=== PATIENT | female | born 1990 | race Caucasian/White ===

== ENCOUNTER 2017-05-21 16:09 | Emergency (ER) | payer MEDICAID ==
[~2017-05-21] VITALS: Ht 160 cm; Wt 58.1 kg
[~2017-05-21 16:09] MED LIST: IRON TABLETS325 MG PO; NOMEDS *; PRENATAL PLUS1 TA1 PO; PRENATAL VITAMI1 TA3 PO; VIBRAMYCIN 100100 MG PO; VOLTAREN75 MG PO
--- OUTSIDE RECORDS SUMMARY | 2017-05-21 16:26 | External Medical Summary Rpt ---
Author Author [facility] Organization [facility] Address Unknown Phone Unavailable Care Team Providers Care Gopherman Name Role Phone FANYY, UNKNOWN PCP Unavailable Encounter TIRSO HUNT [id number] Date(s): 03/30/16 - 03/30/16 [facility] [address] [place] [address]- Discharge Disposition: Left Without Being Seen Attending Physician: STEVIE FONTENOT MD Admitting Physician: STEVIE FONTENOT MD Referring Physician: JAVIER, SELF REFERRED Reason for Visit 10 WKS PREG VOMITING Vital Signs Most recent 1 to oldest [Reference Range]: Temperature Oral Source (03/30/16 3:20 PM) Temperature Fahrenheit Mode (03/30/16 3:20 PM) Temperature, 97.9 Deg F Fahrenheit (03/30/16 3:20 PM) [96.8-99.7 Deg F] Clinical 36.6 Deg C Temperature, (03/30/16 3:20 PM) C Peripheral 90 bpm Pulse Rate (03/30/16 3:20 PM) [60-100 bpm] Respiratory 18 Breaths/Min Rate [14-20 (03/30/16 3:20 PM) Breaths/Min] Blood 105/69 mmHg Pressure (03/30/16 3:20 PM) [90-140/60-9 0 mmHg] Oxygen 100 % Saturation (03/30/16 3:20 PM) [94-100 %] Oxygen Room air Therapy Mode (03/30/16 3:20 PM) Problem List No Known Problems Allergies, Adverse Reactions, Alerts Substance Reaction Severity Status Kaopectate Active Medications No data available for this section Results No data available for this section Immunizations No data available for this section Procedures No data available for this section Social History No data available for this section Assessment and Plan No data available for this section Hospital Discharge Instructions No data available for this section
--- OUTSIDE RECORDS SUMMARY | 2017-05-21 16:26 | External Medical Summary Rpt ---
Author Author [facility]SO [facility] Organization [facility] Address Unknown Phone Unavailable Care Team Providers Care Customer Success Associate Name Role Phone DR JAVIER PCP [phone] Encounter TIRSO HUNT [id number] Date(s): 09/20/16 - 09/23/16 [facility] [address] [place] [address]- Discharge Diagnosis: Hypokalemia Discharge Disposition: IP Self Care / Home Attending Physician: SHAMIR NICOLE MD-OBG Admitting Physician: SHAMIR NICOLE MD-OBG Referring Physician: SHAMIR NICOLE MD-OBG Reason for Visit ENCNTR FOR SUPRVSN OF NORMAL FIRST , UNSP TRIMESTER Vital Signs Most recent 1 to oldest [Reference Range]: Temperature Oral Source (09/20/16 10:14 PM) Temperature Fahrenheit Mode (09/20/16 10:14 PM) Temperature, 98 Deg F Fahrenheit (09/20/16 10:14 PM) [96.8-99.7 Deg F] Clinical 36.7 Deg C Temperature, (09/20/16 10:14 PM) C Pulse Method Non-Invasive BP Device (09/20/16 10:14 PM) Pulse Source Brachial, Left (09/20/16 10:14 PM) Pulse Rhythm Regular (09/20/16 10:14 PM) Peripheral 131 bpm Pulse Rate *HI* [60-100 bpm] (09/20/16 10:14 PM) Respiratory 18 Breaths/Min Rate [14-20 (09/20/16 10:14 PM) Breaths/Min] Blood Arm, left upper Pressure (09/20/16 10:14 PM) Location Blood 110/66 mmHg Pressure (09/20/16 10:14 PM) [90-140/60-9 0 mmHg] Problem List No Known Problems Allergies, Adverse Reactions, Alerts Substance Reaction Severity Status Kaopectate Active Medications multivitamin, ( Multivitamins oral tablet) Oral, Every Day, Refills: 0 omeprazole (omeprazole 40 mg oral delayed release capsule)1 Cap, Oral, Every Day, before a meal, Refills: 0 potassium chloride (potassium chloride 20 mEq oral tablet, extended release) Oral, Two Times A Day, Refills: 0 zolpidem (Ambien 5 mg oral tablet)1 Tab, Oral, At Bedtime, As Needed, Sleep, Refills: 0 Results GENERAL CHEMISTRY Most recent 1 2 3 to oldest [Reference Range]: Sodium Level 140 mmol/L 136 mmol/L [136-145 (09/22/16 4:56 AM) (09/20/16 10:36 mmol/L] PM) Potassium 2.5 mmol/L 2.5 mmol/L 3.1 mmol/L Level 1*CRIT*(09/23/16 2*CRIT*(09/22/16 *LOW*(09/22/16 [3.5-5.1 5:10 AM) 8:32 PM) 2:28 PM) mmol/L] Chloride 99 mmol/L 91 mmol/L Level (09/22/16 4:56 AM) *LOW*(09/20/16 [98-107 10:36 PM) mmol/L] Carbon 38 mmol/L 40 mmol/L Dioxide *HI*(09/22/16 4:56 *HI*(09/20/16 Level [21-32 AM) 10:36 PM) mmol/L] Anion Gap 5 *LOW*(09/22/16 7 *LOW*(09/20/16 [9-20] 4:56 AM) 10:36 PM) (09/22/16 4:56 AM) (09/20/16 10:36 PM) Glucose 75 mg/dL (09/22/16 72 mg/dL Level 4:56 AM) *LOW*(09/20/16 [74-106 10:36 PM) mg/dL] Blood Urea 8 mg/dL (09/22/16 12 mg/dL (09/20/16 Nitrogen 4:56 AM) 10:36 PM) [7-18 mg/dL] Creatinine 0.77 mg/dL 1.16 mg/dL Level (09/22/16 4:56 AM) *HI*(09/20/16 [0.55-1.02 10:36 PM) mg/dL] eGFR 111 mL/min/1.73m2 69 mL/min/1.73m2 [>=60 (09/22/16 4:56 (09/20/16 10:36 mL/min/1.73m AM) PM) 2] eGFR 91 mL/min/1.73m2 57 mL/min/1.73m2 NonAfrican (09/22/16 4:56 AM) *LOW*(09/20/16 [>=60 10:36 PM) mL/min/1.73m 2] Bun/Creatini 10.4 (09/22/16 10.3 (09/20/16 ne 4:56 AM) 10:36 PM) [8.0-20.0] Calcium 7.6 mg/dL 9.1 mg/dL Level *LOW*(09/22/16 (09/20/16 10:36 [8.5-10.1 4:56 AM) PM) mg/dL] Protein 5.1 Gram/dL 6.2 Gram/dL Total *LOW*(09/22/16 *LOW*(09/20/16 [6.4-8.5 4:56 AM) 10:36 PM) Gram/dL] Albumin 1.7 Gram/dL 2.4 Gram/dL Level *LOW*(09/22/16 *LOW*(09/20/16 [3.4-5.0 4:56 AM) 10:36 PM) Gram/dL] Globulin 3.4 Gram/dL 3.8 Gram/dL [1.5-4.5 (09/22/16 4:56 AM) (09/20/16 10:36 Gram/dL] PM) A/G Ratio 0.5 *LOW*(09/22/16 0.6 *LOW*(09/20/16 [1.1-2.5] 4:56 AM) 10:36 PM) (09/22/16 4:56 AM) (09/20/16 10:36 PM) Bilirubin 0.4 mg/dL 0.7 mg/dL Total (09/22/16 4:56 AM) (09/20/16 10:36 [0.2-1.0 PM) mg/dL] Alk Phos 83 Units/Liter 99 Units/Liter [46-116 (09/22/16 4:56 AM) (09/20/16 10:36 Units/Liter] PM) AST [15-37 37 Units/Liter 35 Units/Liter Units/Liter] (09/22/16 4:56 AM) (09/20/16 10:36 PM) ALT [12-78 29 Units/Liter 24 Units/Liter Units/Liter] (09/22/16 4:56 AM) (09/20/16 10:36 PM) Uric Acid 10.4 mg/dL [2.6-6.2 *HI*(09/22/16 4:56 mg/dL] AM) 1Result Comment: CALLED TO:KOLE DUFF DATE/TIME CALLED:09/23/2016 05:58:31 EST READ BACK AND VERIFIED:YES CALLED BY: [email or web address] Comment: CALLED TO:kole duff DATE/TIME CALLED:09/22/2016 21:46:52 EST READ BACK AND VERIFIED:yes CALLED BY: Cindi CHEMISTRY Most recent 1 2 3 to oldest [Reference Range]: Volume Ur 24 1500 mL 1500 mL Hr *NA*(09/22/16 1:22 *NA*(09/22/16 1:22 AM) AM) Creatinine 1.06 Gram/24Hr Urine 24 Hr (09/22/16 1:22 AM) [0.60-1.80 Gram/24Hr] Creatinine 71 mg/dL Urine *NA*(09/22/16 1:22 Measured AM) Protein Ur 240.0 mg/24Hr 24Hr *HI*(09/22/16 1:22 [0.0-149.1 AM) mg/24Hr] CARDIAC SPECIFIC MARKERS Most recent 1 2 3 to oldest [Reference Range]: ProBNP 505 pg/mL [0-125 *HI*(09/22/16 4:56 pg/mL] AM) HEMATOLOGY Most recent 1 2 3 to oldest [Reference Range]: WBC [4.2-9.1 6.7 K/uL (09/22/16 6.9 K/uL (09/20/16 K/uL] 4:56 AM) 10:36 PM) RBC 3.21 Million/uL 3.94 Million/uL [3.93-5.22 *LOW*(09/22/16 (09/20/16 10:36 Million/uL] 4:56 AM) PM) Hgb 9.3 Gram/dL 11.3 Gram/dL [11.2-15.7 *LOW*(09/22/16 (09/20/16 10:36 Gram/dL] 4:56 AM) PM) Hct 27.6 % 33.1 % [34.1-44.9 *LOW*(09/22/16 *LOW*(09/20/16 %] 4:56 AM) 10:36 PM) MCV 86.0 fL (09/22/16 84.0 fL (09/20/16 [79.0-94.8 4:56 AM) 10:36 PM) fL] MCH 29.0 pg (09/22/16 28.7 pg (09/20/16 [25.6-32.2 4:56 AM) 10:36 PM) pg] MCHC 33.7 Gram/dL 34.1 Gram/dL [32.2-36.5 (09/22/16 4:56 AM) (09/20/16 10:36 Gram/dL] PM) Platelet 170 K/uL (09/22/16 198 K/uL (09/20/16 Count 4:56 AM) 10:36 PM) [163-369 K/uL] MPV 11.9 fL (09/22/16 12.2 fL (09/20/16 [9.4-12.4 4:56 AM) 10:36 PM) fL] RDW 14.7 % 14.5 % [11.6-14.4 *HI*(09/22/16 4:56 *HI*(09/20/16 %] AM) 10:36 PM) Neut % 50.3 % (09/22/16 59.6 % (09/20/16 [34.0-71.0 4:56 AM) 10:36 PM) %] Neut # 3.35 K/uL 4.10 K/uL [1.56-6.13 (09/22/16 4:56 AM) (09/20/16 10:36 K/uL] PM) Lymph % 39.7 % (09/22/16 31.4 % (09/20/16 [19.0-53.0 4:56 AM) 10:36 PM) %] Lymph # 2.65 K/uL 2.17 K/uL [1.18-3.74 (09/22/16 4:56 AM) (09/20/16 10:36 K/uL] PM) [place] % 9.0 % (09/22/16 8.8 % (09/20/16 [4.7-12.5 %] 4:56 AM) 10:36 PM) [place] # 0.60 K/uL 0.61 K/uL [0.24-0.82 (09/22/16 4:56 AM) (09/20/16 10:36 K/uL] PM) Eos % 0.7 % 0.1 % [1.0-7.0 %] *LOW*(09/22/16 *LOW*(09/20/16 4:56 AM) 10:36 PM) Eos # 0.05 K/uL 0.01 K/uL [0.04-0.54 (09/22/16 4:56 AM) *LOW*(09/20/16 K/uL] 10:36 PM) Baso % 0.3 % (09/22/16 0.1 % (09/20/16 [0.0-1.0 %] 4:56 AM) 10:36 PM) Baso # 0.02 K/uL 0.01 K/uL [0.01-0.08 (09/22/16 4:56 AM) (09/20/16 10:36 K/uL] PM) Slide Review No (09/22/16 4:56 No (09/20/16 10:36 AM) PM) TOXICOLOGY Most recent 1 2 3 to oldest [Reference Range]: UDS pH 8.5 *NA*(09/20/16 10:36 PM) (09/20/16 10:36 PM) UDS Amp Negative [Negative] *NA*(09/20/16 10:36 PM) UDS Jeanie Negative [Negative] *NA*(09/20/16 10:36 PM) UDS Benzo Negative [Negative] *NA*(09/20/16 10:36 PM) UDS Evan Negative *NA*(09/20/16 10:36 PM) UDS Meth Negative [Negative] *NA*(09/20/16 10:36 PM) UDS Opi Negative [Negative] *NA*(09/20/16 10:36 PM) UDS Oxy Negative [Negative] *NA*(09/20/16 10:36 PM) UDS PCP Negative [Negative] *NA*(09/20/16 10:36 PM) UDS TCA Negative [Negative] *NA*(09/20/16 10:36 PM) UDS THC Negative [Negative] *NA*(09/20/16 10:36 PM) Buprenorphin Negative e Screen, *NA*(09/20/16 Urine 10:36 PM) [Negative] Heroin Metab Negative (6AM) by *NA*(09/20/16 LC-MS/MS, 10:36 PM) Urine [Negative] Propoxyphene Negative , Urine *NA*(09/20/16 [Negative] 10:36 PM) SpGravity, 1.019 Urine *NA*(09/20/16 10:36 PM) UDS 224.1 mg/dL Creatinine, *NA*(09/20/16 Toxicology 10:36 PM) PROTEIN & IMMUNOGLOBULIN STUDIES Most recent 1 2 3 to oldest [Reference Range]: Protein Ur 16 mg/dL Carlos *NA*(09/22/16 1:22 AM) Immunizations No data available for this section Procedures No data available for this section Social History No data available for this section Assessment and Plan Extracted from: Title: Discharge Note Author: TILA, Date: 09/23/16 VERONICA COSTELLO Discharge Plan Encounter for supervision of normal first , third hsmjfsvcbR65.03 Encounter for supervision of normal , unspecified, third eshuvpqdjR07.93 DmtykpxnC76 NakvhyrocgzF68.6, Hypokalemia due to loss of fgonntakgN64.6 Nausea and vomiting during zadpyyzwxD30.8 Orders: potassium chloride, Oral, ER Tab, BID, 0 Refill(s) potassium chloride, 40 mEq 2 Tab, Oral, CR Tab, BID, Routine, Start 09/23/16 9:00:00 EST zolpidem, 1 Tab, Oral, Tab, At Bedtime, PRN Sleep, 0 Refill(s) No qualifying data available. Patient Discharge Condition stable Discharge Disposition D/C home in private car stable Discharge Disposition D/C home in private car Extracted from: Title: Progress/SOAP Author: TILA, Date: 09/23/16 Note VERONICA COSTELLO Assessment/Plan Encounter for supervision of normal first , third gsrikbteqB43.03 Encounter for supervision of normal , unspecified, third qpysoqiiyU83.93 HczpnywgD08 VgzxpkompdoS89.6, Hypokalemia due to loss of gneefeggwR90.6 Nausea and vomiting during ruryhulgoU13.8 Orders: potassium chloride, 40 mEq 2 Tab, Oral, CR Tab, BID, Routine, Start 09/23/16 9:00:00 EST N/V -resolved Dehydration-resolved Hypokalemia-improved. Home on Potassium 40meq BID RTC on Wednesday09/28/16 Dehydration-resolved Hypokalemia-improved. Home on Potassium 40meq BID RTC on Wednesday09/28/16 Extracted from: Title: Progress/SOAP Author: TILA, Date: 09/22/16 Note VERONICA COSTELLO Assessment/Plan Encounter for supervision of normal first , unspecified txmzkrkffX82.00, Encounter for supervision of normal first , unspecified nzmzjkskqI22.00 IUP 34 +wks Hypokalemia-continue Potassium runs until normal level N/V-resolved IRBY-resolved Consulted with JACKIE. Will monitor labs for preeclampsia and b/p wkly starting at the end of this wk if able to d/c home after normal potassium level. Extracted from: Title: Progress/SOAP Author: TILA, Date: 09/21/16 Note VERONICA COSTELLO Assessment/Plan Ordered: acetaminophen, 650 mg, Oral, Tab, Q4H, PRN for Pain (Mild 1-3), Routine, Start 09/20/16 22:14:00 EST acetaminophen/butalbital/caffeine, 1 Tab, Oral, Tab, Q4H, PRN for Pain (Mild 1-3), Routine, Start 09/21/16 9:38:00 EST acetaminophen/butalbital/caffeine, 2 Tab, Oral, Tab, Q4H, PRN for Pain (Moderate 4-6), Routine, Start 09/21/16 9:38:00 EST Al hydroxide/Mg hydroxide/simethicone, 30 mL, Oral, Liquid, Q8H, PRN for Heartburn, Routine, Start 09/20/16 22:14:00 EST docusate, 100 mg, Oral, Cap, Q12H, PRN for Constipation, Routine, Start 09/20/16 22:14:00 EST docusate-senna, 1 Tab, Oral, Tab, At Bedtime, Routine, Start 09/20/16 22:14:00 EST famotidine, 20 mg, Oral, Tab, Q12H, PRN for Indigestion, Routine, Start 09/20/16 22:14:00 EST Lactated Ringers Injection 1,000 mL, 1,000 mL, Bag Volume (mL) = 1,000, Rate = 125 mL/Hr, IntraVENous, start date 09/20/16 22:14:00 EST, Routine multivitamin, , 1 Tab, Oral, Tab, Daily, Routine, Start 09/21/16 9:00:00 EST ondansetron, 4 mg, IV Push, Inj, Q4H, PRN for Nausea/Vomiting, Routine, Start 09/20/16 22:14:00 EST potassium chloride, 20 mEq 1 Tab, Oral, CR Tab, Q2H, PRN for Other (See Comment), Routine, Start 09/21/16 0:07:00 EST potassium chloride, 60 mEq 3 Tab, Oral, CR Tab, Q2H, PRN for Other (See Comment), Routine, Start 09/21/16 0:07:00 EST promethazine, 12.5 mg, IV Push, Inj, Q6H, PRN for Nausea/Vomiting, Routine, Start 09/20/16 22:14:00 EST terbutaline, 0.25 mg, SubCutaneous, Inj, Q20Min, PRN for Other (See Comment), Routine, Start 09/20/16 22:14:00 EST zolpidem, 5 mg, Oral, Tab, At Bedtime, PRN for Sleep, Routine, Start 09/20/16 22:14:00 EST CBC w/ Auto Diff CMP Comprehensive Metabolic Panel Creatinine Urine 24 Hr Diet, Adult DVT VTE Prophylaxis Education Electronic Heart Rate External Facility Protocol Lab Order Instructions to Nursing Notify Provider Laboratory Results Peripheral IV Insertion ProBNP Protein Urine 24 Hr Saline Lock Insert Uric Acid Vital Signs Weight (Routine) IUP 34+wks N/V/Dehydration-improving Low Potassium-multiple potassium IV runs 24 hr urine still in progress Repeat labs in AM Consult [facility] IUP 34+wks N/V/Dehydration-improving Low Potassium-multiple potassium IV runs 24 hr urine still in progress Repeat labs in AM Consult [facility] Hospital Discharge Instructions No data available for this section
--- OUTSIDE RECORDS SUMMARY | 2017-05-21 16:26 | External Medical Summary Rpt ---
Author Author Sharath [facility] Organization [facility] Address Unknown Phone Unavailable Care Team Providers Care Waiter/Waitress Tourist Class Name Role Phone DR JAVIER PCP [phone] Encounter T[facility]SO [facility] [id number] Date(s): 09/13/16 - 09/20/16 [facility] [address] [place] [address]- Discharge Disposition: OP Self Care or Home Attending Physician: SHAMIR NICOLE MD-OBG Admitting Physician: SHAMIR NICOLE MD-OBG Referring Physician: SHAMIR NICOLE MD-OBG Reason for Visit ENCNTR FOR SUPRVSN OF NORMAL FIRST , UNSP TRIMESTER Vital Signs No data available for this section Problem List No Known Problems Allergies, Adverse [...]
--- OUTSIDE RECORDS SUMMARY | 2017-05-21 16:26 | External Medical Summary Rpt ---
Author Author Sharath [facility] Organization [facility] Address Unknown Phone Unavailable Care Team Providers Care Dinkey Mechanic Name Role Phone DR JAVIER PCP [phone] Encounter TIRSO [facility] [id number] Date(s): 09/13/16 - 09/20/16 [facility] [address] [place] [address]- [phone] Discharge Disposition: OP Self Care or Home [...]
--- OUTSIDE RECORDS SUMMARY | 2017-05-21 16:26 | External Medical Summary Rpt ---
Author Author TIRSO [facility] Organization [facility] Address Unknown Phone Unavailable Care Team Providers Care Boatswain'S Mate Name Role Phone DR JAVIER PCP [phone] Encounter TIRSO HUNT [id number] Date(s): 09/20/16 - 09/23/16 [facility] [address] [place] [address]- Discharge Diagnosis: Hypokalemia Discharge Disposition: IP Self [...] EST READ BACK AND VERIFIED:YES CALLED BY: [email or web address] Comment: CALLED TO:kole duff DATE/TIME CALLED:09/22/2016 21:46:52 [...] (09/22/16 4:56 AM) (09/20/16 10:36 K/uL] PM) Crowley % 9.0 % (09/22/16 8.8 % (09/20/16 [4.7-12.5 %] 4:56 AM) 10:36 PM) [place]ley # 0.60 K/uL 0.61 K/uL [0.24-0.82 (09/22/16 [...] for supervision of normal first , third pbkefndrnC64.03 Encounter for supervision of normal , unspecified, third iamcathjsC24.93 StffeoedB67 ZjdnzgzsjupB66.6, Hypokalemia due to loss of cspaymzmdI65.6 Nausea and vomiting during jgdubgewfS06.8 Orders: potassium chloride, Oral, ER Tab, BID, [...] for supervision of normal first , third ayepwrsagA46.03 Encounter for supervision of normal , unspecified, third eloozjizdF88.93 AmerzyukK69 AnessnnfupxP06.6, Hypokalemia due to loss of moglhoxhjR32.6 Nausea and vomiting during jkgihbwqrW59.8 Orders: potassium chloride, 40 mEq 2 Tab, Oral, CR Tab, BID, Routine, Start 09/23/16 9:00:00 EST N/V -resolved Dehydration-resolved Hypokalemia-improved. Home on Potassium 40meq BID RTC on Wednesday09/28/16 Dehydration-resolved Hypokalemia-improved. Home on Potassium 40meq BID RTC on Wednesday09/28/16 Extracted from: Title: Progress/SOAP Author: TILA, Date: 09/22/16 Note VERONICA COSTELLO Assessment/Plan Encounter for supervision of normal first , unspecified oeonfyytkJ22.00, Encounter for supervision of normal first , unspecified wbupituebE83.00 IUP 34 +wks Hypokalemia-continue Potassium runs until [...] in progress Repeat labs in AM Consult [facility] IUP 34+wks N/V/Dehydration-improving Low Potassium-multiple potassium IV runs 24 hr urine still in progress Repeat labs in AM Consult [facility] Hospital Discharge Instructions No data available for this section
--- OUTSIDE RECORDS SUMMARY | 2017-05-21 16:26 | External Medical Summary Rpt ---
Author Author TIRSO [facility] Organization [facility] Address Unknown Phone Unavailable Care Team Providers Care Genomics Scientist Name Role Phone FANYY, UNKNOWN PCP Unavailable Encounter TIRSO HUNT [id number] Date(s): 03/30/16 - 03/30/16 [facility] [address] [place] [address]- Discharge Disposition: Left Without Being Seen Attending [...]
--- OUTSIDE RECORDS SUMMARY | 2017-05-21 16:27 | External Medical Summary Rpt | CCD ---
Author Author , FRANKIE Organization [facility] Address Unknown Phone [email or web address] Immunization Name Date Rout CVX Reac Dose Comm Prov Is Faci e tion ent ider Refu lity Give sed n Tdap 03-1 Intr 115 0.5 Hist 1005 No 1005 , 8-20 amus mL oric 38 38 Adso 17 cula al rbed r Info rmat ion - Sour ce Unsp ecif ied MMR 03-1 3 0.5 Hist 1005 No 1005 8-20 mL oric 38 38 17 al Info rmat ion - Sour ce Unsp ecif ied Infl 02-2 Intr 140 0.5 Hist WALM No WALM uenz 2-20 amus mL oric ART5 ART5 a, 17 cula al 91 91 P-Fr r Info ee rmat ion - Sour ce Unsp ecif ied
--- OUTSIDE RECORDS SUMMARY | 2017-05-21 16:27 | External Medical Summary Rpt | CCD ---
Author Author [facility] Organization [facility] Address Unknown Phone Unavailable Purpose Continuity of Care Document - through 2016
--- OUTSIDE RECORDS SUMMARY | 2017-05-21 16:27 | External Medical Summary Rpt | CCD ---
Author Author , FRANKIE DAVID Address Unknown Phone [email or web address] Purpose Continuity of Care Document - 05-15-2014 through 2016 Results Labs Lab Lab Date Result Refere Interp Status Commen Order Detail nces retati t Range on Choriogonadotropin.beta subunit ( test) [Presence] in Serum or Plasma (12-31-2016 14:29) Choriog 0 complet onadotr 017 ed opin.be 14:29 ta subunit (pregna ncy test) [Presen ce] in Serum or Plasma CHLAMYDIA AND GONORRHEA TESTING (05-15-2014 08:25) Office Machine Punch Operator: Estela Madrid MD [facility] Lab: [facility] Division of Laboratory Services Lab Address: [address] [place] [address], [address] [place] [address] 05-15-2014 8:25 am Specimen Collection Start Date/Time: Tufting Machine Operator: Specimen Suad'maude 05-17-2014 9:53 am Date/Time: Ordering Physician: [facility] 05-18-2014 8:47 am Results Rpt/Status Change Date/Time: This report contains patient information that must be protected in accordance with the Health Insurance Portability and Accountability Act. COLLECT J. complet OR 014 ALEJA ed 08:25 , RN AMPLIFI NEGATIV complet ED N 014 E ed GONORRH 08:25 OEAE TEST Comment: NEGATIVE RESULT= WITHIN NORMAL LIMITS Comment: POSITIVE RESULT= ABNORMAL Comment: EQUIVOCAL RESULT= INDETERMINATE Comment: UNSATISFACTORY RESULT= INVALID Comment: THE APTIMA COMBO 2 ASSAY IS NOT INTENDED FOR THE EVALUATION OF SUSPECTED Comment: SEXUAL ABUSE OR FOR OTHER MEDICO-LEGAL INDICATIONS. FOR THOSE PATIENTS FOR Comment: WHOM A FALSE POSITIVE RESULT MAY HAVE ADVERSE PSYCHO-SOCIAL IMPACT, THE CDC Comment: RECOMMENDS RETESTING. Comment: \E\.br\E\This report contains patient information that must be protected in accordance with the Health Insurance Portability and Accountability Act. AMPLIFI 10-14-2 NEGATIV complet ED 014 E ed CHLAMYD 08:25 IA TEST Comment: NEGATIVE RESULT= WITHIN NORMAL LIMITS Comment: POSITIVE RESULT= ABNORMAL Comment: EQUIVOCAL RESULT= INDETERMINATE Comment: UNSATISFACTORY RESULT= INVALID CHART 10-14-2 N/A complet NUMBER 014 ed 08:25 PREGNAN 10-14-2 YES complet T 014 ed 08:25 SPECIME 10-14-2 URINE complet N 014 ed SOURCE 08:25 REASON 10-14-2 FAMILY complet FOR 014 PLANNIN ed REQUEST 08:25 G PREGNAN CY TEST VISIT SYMPTOM 10-14-2 NO complet S 014 ed 08:25 KIT 10-14-2 11/29/ complet EXPIRAT 014 015 ed ION 08:25 DATE ETHNICI 10-14-2 WHITE, complet TY 014 NON-HIS ed 08:25 PANIC CHLAMYDIA AND GONORRHEA TESTING (05-15-2014 08:25) Chlamyd 10-14-2 NEGATIV complet ia 014 E ed trachom 08:25 atis rRNA [Presen ce] in Unspeci fied specime n by Probe & target amplifi cation method Neisser 10-14-2 NEGATIV complet ia 014 E ed gonorrh 08:25 oeae rRNA [Presen ce] in Unspeci fied specime n by Probe & target amplifi cation method CHLAMYDIA AND GONORRHEA TESTING (05-15-2014 08:25) COLLECT 10-14-2 J. complet OR 014 [facility] ed 08:25 , RN ETHNICI 10-14-2 WHITE, complet TY 014 NON-HIS ed 08:25 PANIC KIT 10-14-2 complet EXPIRAT 014 015 ed ION 08:25 DATE SYMPTOM 10-14-2 NO complet S 014 ed 08:25 REASON 10-14-2 FAMILY complet FOR 014 PLANNIN ed REQUEST 08:25 G PREGNAN CY TEST VISIT SPECIME 10-14-2 URINE complet N 014 ed SOURCE 08:25 PREGNAN 10-14-2 YES complet T 014 ed 08:25 CHART 10-14-2 N/A complet NUMBER 014 ed 08:25 Chlamyd 10-14-2 Pending complet ia 014 ed trachom 08:25 atis rRNA [Presen ce] in Unspeci fied specime n by Probe & target amplifi cation method Neisser 10-14-2 Pending complet ia 014 ed gonorrh 08:25 oeae rRNA [Presen ce] in Unspeci fied specime n by Probe & target amplifi cation method
--- OUTSIDE RECORDS SUMMARY | 2017-05-21 16:27 | External Medical Summary Rpt | CCD ---
Author Author , FRANKIE Organization [facility] Address Unknown Phone [email or web address] Immunization Name Date Rout CVX Reac Dose [...]
--- OUTSIDE RECORDS SUMMARY | 2017-05-21 16:27 | External Medical Summary Rpt ---
Author Author Sharath [facility] Organization [facility] Address Unknown Phone Unavailable Care Team Providers Care Mental Health Practitioner Name Role Phone Lloyd NICOLE PCP [phone] DR JAVIER PCP [phone] Encounter TIRSO HUNT [id number] Date(s): 10/15/16 - 10/17/16 [facility] [address] [place] [address]- Discharge Diagnosis: (vaginal after ) Discharge Disposition: IP Self Care / Home Attending Physician: TRANG ADORNO ARN Admitting Physician: TRANG ADORNO ARN Referring Physician: TRANG ADORNO ARN Reason for Visit ENCNTR FOR CARE AND EXAM OF MOTHER IMMEDIATELY AFTER DEL Vital Signs Most recent 1 to oldest [Reference Range]: Temperature, 97.9 Deg F Fahrenheit (10/16/16 1:58 PM) [96.8-99.7 Deg F] Clinical 36.6 Deg C Temperature, (10/16/16 1:58 PM) C Peripheral 71 bpm Pulse Rate (10/16/16 1:58 PM) [60-100 bpm] Respiratory 16 Breaths/Min Rate [14-20 (10/16/16 1:58 PM) Breaths/Min] Blood 111/78 mmHg Pressure (10/16/16 1:58 PM) [90-140/60-9 0 mmHg] Height Stated Source (10/16/16 1:58 PM) Height Entry Ada Format (10/16/16 1:58 PM) Height/Lengt 68 Inch h [place]EN[place] (10/16/16 1:58 PM) CLINICALHEIG 172.72 cm HT (10/16/16 1:58 PM) Weight Standing scale Source (10/16/16 1:58 PM) Weight Entry Ada Format (10/16/16 1:58 PM) Weight 128 lb Pashto lb (10/16/16 1:58 PM) CLINICALWEIG 58.18 kg HT (10/16/16 1:58 PM) Body Surface 1.69 m2 Area (BSA) (10/16/16 1:58 PM) Body Mass 19.5 kg/m2 Index (BMI) (10/16/16 1:58 PM) [19.0-24.0 kg/m2] Willis Body 63.45 kg Weight (10/16/16 1:58 PM) Problem List No Known Problems Allergies, Adverse Reactions, Alerts Substance Reaction Severity Status Kaopectate Active Medications ibuprofen (ibuprofen 600 mg oral tablet)1 Tab, Oral, Every 4 Hours, As Needed, Pain (Mild 1-3), Refills: 0 multivitamin, ( Multivitamins oral tablet) Oral, Every Day, Refills: 0 Results GENERAL CHEMISTRY Most recent 1 2 to oldest [Reference Range]: Potassium 3.2 mmol/L 2.9 mmol/L Level *LOW* *LOW* [3.5-5.1 (10/15/16 8:44 PM) (10/15/16 1:27 PM) mmol/L] Blood Urea 11 mg/dL 14 mg/dL Nitrogen (10/15/16 8:47 PM) (10/15/16 1:27 PM) [7-18 mg/dL] Creatinine 1.12 mg/dL 1.21 mg/dL Level *HI* *HI* [0.55-1.02 (10/15/16 8:47 PM) (10/15/16 1:38 PM) mg/dL] eGFR 72 mL/min/1.73m2 66 mL/min/1.73m2 [>=60 (10/15/16 8:47 PM) (10/15/16 1:38 PM) mL/min/1.73m 2] eGFR 59 mL/min/1.73m2 54 mL/min/1.73m2 NonAfrican *LOW* *LOW* [>=60 (10/15/16 8:47 PM) (10/15/16 1:38 PM) mL/min/1.73m 2] AST [15-37 56 Units/Liter 56 Units/Liter Units/Liter] *HI* *HI* (10/15/16 8:47 PM) (10/15/16 1:27 PM) ALT [12-78 61 Units/Liter 63 Units/Liter Units/Liter] (10/15/16 8:47 PM) (10/15/16 1:27 PM) Lactate 205 Units/Liter 190 Units/Liter Dehydrogenas (10/15/16 8:47 PM) (10/15/16 1:27 PM) e [82-234 Units/Liter] Uric Acid 9.2 mg/dL 10.2 mg/dL [2.6-6.2 *HI* *HI* mg/dL] (10/15/16 8:47 PM) (10/15/16 1:27 PM) CARDIAC SPECIFIC MARKERS Most recent 1 2 to oldest [Reference Range]: ProBNP 195 pg/mL [0-125 *HI* pg/mL] (10/15/16 8:47 PM) HEMATOLOGY Most recent 1 2 to oldest [Reference Range]: WBC [4.2-9.1 5.9 K/uL K/uL] (10/15/16 1:27 PM) RBC 4.08 Million/uL [3.93-5.22 (10/15/16 1:27 PM) Million/uL] Hgb 12.3 Gram/dL [11.2-15.7 (10/15/16 1:27 PM) Gram/dL] Hct 36.0 % [34.1-44.9 (10/15/16 1:27 PM) %] MCV 88.2 fL [79.0-94.8 (10/15/16 1:27 PM) fL] MCH 30.1 pg [25.6-32.2 (10/15/16 1:27 PM) pg] MCHC 34.2 Gram/dL [32.2-36.5 (10/15/16 1:27 PM) Gram/dL] Platelet 141 K/uL Count *LOW* [163-369 (10/15/16 1:27 PM) K/uL] MPV 13.5 fL [9.4-12.4 *HI* fL] (10/15/16 1:27 PM) RDW 16.6 % [11.6-14.4 *HI* %] (10/15/16 1:27 PM) Neut % 51.9 % [34.0-71.0 (10/15/16 1:27 PM) %] Neut # 3.08 K/uL [1.56-6.13 (10/15/16 1:27 PM) K/uL] Lymph % 41.4 % [19.0-53.0 (10/15/16 1:27 PM) %] Lymph # 2.45 K/uL [1.18-3.74 (10/15/16 1:27 PM) K/uL] [place] % 6.3 % [4.7-12.5 %] (10/15/16 1:27 PM) [place] # 0.37 K/uL [0.24-0.82 (10/15/16 1:27 PM) K/uL] Eos % 0.2 % [1.0-7.0 %] *LOW* (10/15/16 1:27 PM) Eos # 0.01 K/uL [0.04-0.54 *LOW* K/uL] (10/15/16 1:27 PM) Baso % 0.2 % [0.0-1.0 %] (10/15/16 1:27 PM) Baso # 0.01 K/uL [0.01-0.08 (10/15/16 1:27 PM) K/uL] Slide Review No (10/15/16 1:27 PM) TOXICOLOGY Most recent 1 2 to oldest [Reference Range]: UDS pH 9.7 *NA* (10/15/16 1:27 PM) UDS Amp Negative [Negative] (10/15/16 1:27 PM) UDS Jeanie Negative [Negative] (10/15/16 1:27 PM) UDS Benzo Negative [Negative] (10/15/16 1:27 PM) UDS Evan Negative (10/15/16 1:27 PM) UDS Meth Negative [Negative] (10/15/16 1:27 PM) UDS Opi Negative [Negative] (10/15/16 1:27 PM) UDS Oxy Negative [Negative] (10/15/16 1:27 PM) UDS PCP Negative [Negative] (10/15/16 1:27 PM) UDS TCA Negative [Negative] (10/15/16 1:27 PM) UDS THC Negative [Negative] (10/15/16 1:27 PM) Buprenorphin Negative e Screen, (10/15/16 1:27 PM) Urine [Negative] Heroin Metab Negative (6AM) by (10/15/16 1:27 PM) LC-MS/MS, Urine [Negative] Propoxyphene Negative , Urine (10/15/16 1:27 PM) [Negative] SpGravity, 1.008 Urine *NA* (10/15/16 1:27 PM) UDS 76.4 mg/dL Creatinine, *NA* Toxicology (10/15/16 1:27 PM) BLOOD BANK Most recent 1 2 to oldest [Reference Range]: ABO/Rh O POS *Unknown* (10/15/16 1:27 PM) ABO/Rh O POS Repeat *Unknown* (10/15/16 1:32 PM) Antibody Negative ABSC Screen (10/15/16 1:27 PM) (Tube) Immunizations Vaccine Date Refusal Reason measles/mumps/rubella virus vaccine 10/17/16 tetanus/diphtheria/pertussis, acel(Tdap) 10/17/16 Procedures No data available for this section Social History No data available for this section Assessment and Plan Extracted from: Title: PPD2 Author: TILA, Date: 10/17/16 VERONICA COSTELLO Assessment/Plan Encounter for care and examination of mother immediately after sgztpsuhC52.0, Encounter for care and examination of mother immediately after fldymjzaV31.0 Encounter for supervision of normal , unspecified, third inwtabjfmW71.93 OqfstjaszhpI95.6 LzxmpezzsfvyA66.04 (vaginal after )O34.219 Orders: measles/mumps/rubella virus vaccine, 0.5 mL, SubCutaneous, Inj, DISCHRG, Routine, Start 10/17/16 12:29:00 EDT Admit to Inpatient PPD2 D/C home PPD2 D/C home Extracted from: Title: PPD1 Author: TILA, Date: 10/16/16 VERONICA COSTELLO Assessment/Plan Encounter for care and examination of mother immediately after frmgvsygW00.0, Encounter for care and examination of mother immediately after fspxxrnjH28.0 Encounter for supervision of normal , unspecified, third jswbklopqA42.93 BeaxqycffdrT09.6 WwdsymcxpfieX28.04 (vaginal after )O34.219 Orders: acetaminophen, 1,000 mg, Oral, Tab, Q4H, PRN for Pain (Mild 1-3), Routine, Start 10/15/16 18:16:00 EDT acetaminophen, 1,000 mg, Oral, Tab, Q4H, PRN for Fever, Routine, Start 10/15/16 18:16:00 EDT acetaminophen-oxyCODONE, 2 Tab, Oral, Tab, Q4H, PRN for Pain (Moderate 4-6), Routine, Start 10/15/16 18:16:00 EDT Al hydroxide/Mg hydroxide/simethicone, 30 mL, Oral, Liquid, Q4H, PRN for Indigestion, Routine, Start 10/15/16 18:16:00 EDT benzocaine topical, 1 Lenore, Topical, Lenore, Q4H, PRN for Pain, Routine, Start 10/15/16 18:16:00 EDT bisacodyl, 10 mg, Rectal, Supp, BID, PRN for Constipation, Routine, Start 10/15/16 18:16:00 EDT calcium gluconate, 1 Gram 10 mL, IV Piggyback, 1-Time, Administer over 60 Minute(s), PRN for Respiratory Depression, Routine, Start 10/15/16 18:21:00 EDT, 60 mL/Hr diphenhydrAMINE, 25 mg, Oral, Tab, At Bedtime, PRN for Insomnia, Routine, Start 10/15/16 18:16:00 EDT docusate, 100 mg, Oral, Cap, Q12H, PRN for Constipation, Routine, Start 10/15/16 18:16:00 EDT docusate-senna, 1 Tab, Oral, Tab, BID, Routine, Start 10/15/16 21:00:00 EDT famotidine, 20 mg, Oral, Tab, Q12H, PRN for Heartburn, Routine, Start 10/15/16 18:16:00 EDT ferrous sulfate, 325 mg, Oral, EC Tab, Daily, Routine, Start 10/16/16 9:00:00 EDT glycerin-witch ana topical, 1 Each, Topical, MISC, See Comment, PRN for Pain, Routine, Start 10/15/16 18:16:00 EDT hydrocortisone-pramoxine topical, 1 Application, Rectal, Cream, Q4H, PRN for Perineal Comfort Measure, Routine, Start 10/15/16 18:16:00 EDT ibuprofen, 600 mg, Oral, Tab, Q4H, PRN for Pain (Mild 1-3), Routine, Start 10/15/16 18:16:00 EDT labetalol, 20 mg, IV Push, Inj, Q20Min, PRN for Hypertension, Routine, Start 10/15/16 18:21:00 EDT Lactated Ringers Injection 1,000 mL, 1,000 mL, Bag Volume (mL) = 1,000, Rate = 125 mL/Hr, IntraVENous, start date 10/15/16 18:21:00 EDT, Routine lanolin topical, 1 Application, Topical, Oint, See Comment, PRN for Other (See Comment), Routine, Start 10/15/16 18:16:00 EDT magnesium sulfate 20 Gram, Inj, IntraVENous, 10/15/16 18:40:00 EDT, 63.64 kg methylergonovine, 0.2 mg, IntraMuscular, Inj, 1-Time, PRN for Other (See Comment), Routine, Start 10/15/16 18:16:00 EDT misoprostol, 400 mcg, Rectal, Tab, 1-Time, PRN for Other (See Comment), Routine, Start 10/15/16 18:16:00 EDT multivitamin, , 1 Tab, Oral, Tab, Daily, Routine, Start 10/16/16 9:00:00 EDT oxytocin, 20 Units 1,000 mL, IntraVENous, Inj, 1-Time, Administer over 1 Hour(s), Start 10/15/16 19:00:00 EDT, Stop 10/15/16 19:00:00 EDT, 1000 mL/Hr potassium chloride 10 mEq + lidocaine 1 mL + Sodium Chloride 0.9% 100 mL, IV Piggyback, Q1H, Administer over 1 Hour(s), order duration: 4 Time(s), PRN for Other (See Comment), Routine, Start 10/15/16 14:08:00 EDT, Stop Limited # of times, 100 mL/Hr RHo (D) immune globulin, 1,500 Units, IntraMuscular, Inj, 1-Time, Routine, Start 10/16/16 20:00:00 EDT, Stop 03/17/17 20:00:00 EDT simethicone, 80 mg, Chew, Tab, Q4H, PRN for Gas, Routine, Start 10/15/16 18:16:00 EDT sodium chloride, 10 mL, IV Push, Inj, See Comment, PRN for IV Use, Routine, Start 10/15/16 18:21:00 EDT zolpidem, 5 mg, Oral, Tab, At Bedtime, PRN for Insomnia, Routine, Start 10/15/16 18:16:00 EDT Ambulate Assess Lochia Assess Lochia Assess Uterine Involution Assess Uterine Involution Bedrest Breast Pump CBC w/ Auto Diff Communication to Nursing Consult to Surgical Services Assistant Convert IV to Saline Lock Convert IV to Saline Lock Deep Tendon Reflexes Diet, Adult DVT VTE Prophylaxis Education Facility Protocol Facility Protocol Ice Therapy Ice Therapy Intake and Output Intake and Output May Shower May Shower Nothing per Rectum Notify Provider Intake and Output Notify Provider Vital Signs Notify Provider Vital Signs Pathology Tissue Request Perineal Care Peripheral IV Discontinue Pulse Oximetry Continuous Monitoring Resuscitation Status Seizure Precautions Sequential Compression Device Sequential Compression Device Sitz Bath Smoking Cessation Education (Nursing) Up Ad Tricia Urinary Catheter Insertion Urinary Catheter Insertion Urinary Catheter Management Urinary Catheter Removal Visitor Restrictions Vital Signs Vital Signs Vital Signs Vital Signs Warming Measures PPD1 Preeclampsia-d/c magnesium Routine care Sitz Bath Smoking Cessation Education (Nursing) Up Ad Tricia Urinary Catheter Insertion Urinary Catheter Insertion Urinary Catheter Management Urinary Catheter Removal Visitor Restrictions Vital Signs Vital Signs Vital Signs Vital Signs Warming Measures PPD1 Preeclampsia-d/c magnesium Routine care Hospital Discharge Instructions Patient EducationBreastfeeding Care After Vaginal Delivery Vaginal Delivery, Care After
--- OUTSIDE RECORDS SUMMARY | 2017-05-21 16:27 | External Medical Summary Rpt | CCD ---
Author Author , FRANKIE DAVID Address Unknown Phone [email or web address] Purpose Continuity of Care Document - 05-15-2014 through 2016 Results Labs Lab Lab Date Result Refere Interp Status Commen Order Detail nces retati t Range on Choriogonadotropin.beta subunit ( test) [Presence] in Serum or Plasma (12-31-2016 14:29) Choriog 0 complet onadotr 017 ed opin.be 14:29 ta subunit (pregna ncy test) [Presen ce] in Serum or Plasma CHLAMYDIA AND GONORRHEA TESTING (05-15-2014 08:25) Host And Hostess: Estela Mardid MD [facility] Lab: [facility] Services Lab Address: [address] [place] [address], [address] [place] [address] 05-15-2014 8:25 am Specimen Collection Start Date/Time: Construction Teacher: Specimen Suad'maude 05-17-2014 9:53 am Date/Time: Ordering Physician: [facility] 05-18-2014 8:47 am Results Rpt/Status Change [...] 08:25) COLLECT 10-14-2 J. complet OR 014 [facility] ed 08:25 , RN ETHNICI 10-14-2 WHITE, [...]
--- OUTSIDE RECORDS SUMMARY | 2017-05-21 16:27 | External Medical Summary Rpt ---
Author Author Sharath [facility] Organization [facility] Address Unknown Phone Unavailable Care Team Providers Care Excellence Consultant Name Role Phone Lloyd NICOLE PCP [phone] DR JAVIER PCP [phone] Encounter TIRSO HUNT [id number] Date(s): 10/15/16 - 10/17/16 [facility] [address] [place] [address]- Discharge Diagnosis: (vaginal after ) Discharge Disposition: [...] Stated Source (10/16/16 1:58 PM) Height Entry Charles Format (10/16/16 1:58 PM) Height/Lengt 68 Inch h LITHU[place]IAN (10/16/16 1:58 PM) CLINICALHEIG 172.72 cm HT (10/16/16 1:58 PM) Weight Standing scale Source (10/16/16 1:58 PM) Weight Entry Charles Format (10/16/16 1:58 PM) Weight 128 lb Khmer lb (10/16/16 1:58 PM) CLINICALWEIG 58.18 kg HT (10/16/16 1:58 PM) Body Surface 1.69 m2 Area (BSA) (10/16/16 1:58 PM) Body Mass 19.5 kg/m2 Index (BMI) (10/16/16 1:58 PM) [19.0-24.0 kg/m2] [place] Body 63.45 kg Weight (10/16/16 1:58 PM) [...] 2.45 K/uL [1.18-3.74 (10/15/16 1:27 PM) K/uL] Kane % 6.3 % [4.7-12.5 %] (10/15/16 1:27 PM) Kane # 0.37 K/uL [0.24-0.82 (10/15/16 1:27 PM) [...] care and examination of mother immediately after drvnwonrJ40.0, Encounter for care and examination of mother immediately after aoxlswyhV86.0 Encounter for supervision of normal , unspecified, third xeqiozbpfG12.93 GgfrzbbkcxeL95.6 GbstymjxyalnW23.04 (vaginal after )O34.219 Orders: measles/mumps/rubella virus vaccine, 0.5 mL, SubCutaneous, Inj, DISCHRG, Routine, Start 10/17/16 12:29:00 EDT Admit to Inpatient PPD2 D/C home PPD2 D/C home Extracted from: Title: PPD1 Author: TILA, Date: 10/16/16 VERONICA COSTELLO Assessment/Plan Encounter for care and examination of mother immediately after rupnlvpkH87.0, Encounter for care and examination of mother immediately after yasubxmsA06.0 Encounter for supervision of normal , unspecified, third aqpkcchebC62.93 OgbbdxfpnwaT38.6 TwqpktskblkwA89.04 (vaginal after )O34.219 Orders: acetaminophen, 1,000 mg, [...] Start 10/15/16 18:16:00 EDT benzocaine topical, 1 Boyds, Topical, Boyds, Q4H, PRN for Pain, Routine, Start 10/15/16 [...] Auto Diff Communication to Nursing Consult to Stores Assistant Convert IV to Saline Lock Convert [...]
--- OUTSIDE RECORDS SUMMARY | 2017-05-21 16:28 | External Medical Summary Rpt ---
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: H H 1 HR POSTOP Hematocri 37.0 - % Low No Jan 22 t [Volume 47.0 informati 2016 8:35 on in AM Fraction] source of Blood data Hemoglobi 12.2 - g/dL Low No Jan 22 n 16.2 informati 2016 8:35 [Mass/vol on in AM ume] in source Blood data Comprehensive metabolic 2000 panel in Serum or Plasma Observa Value Referen Units Interpr Notes Date tion ce etation Range Albumin/G 1.1 - 1.8 No Normal No Jan 21 lobulin informati informati 2016 8:58 [Mass on in on in AM ratio] in source source Serum or data data Plasma Albumin 3.4 - 5.0 gm/dL Normal No Jan 21 [Mass/vol informati 2017 8:58 ume] in on in AM Serum or source Plasma data Alkaline 46 - 116 U/L Normal No Jan 21 phosphata informati 2017 8:58 se on in AM [Enzymati source c data activity/ volume] in Serum or Plasma Bilirubin 0.2 - 1.0 mg/dL Normal No Jan 21 .total informati 2017 8:58 [Mass/vol on in AM ume] in source Serum or data Plasma Urea 7 - 18 mg/dL Normal No Jan 21 nitrogen informati 2017 8:58 [Mass/vol on in AM ume] in source Serum or data Plasma Calcium 8.5 - mg/dL Normal No Jan 21 [Mass/vol 10.1 informati 2016 8:58 ume] in on in AM Serum or source Plasma data Chloride 98 - 107 mmoL/L Normal No Jan 21 [Moles/vo informati 2016 8:58 lume] in on in AM Serum or source Plasma data Carbon 21.0 - mmoL/L Normal No Jan 21 dioxide, 32.0 informati 2016 8:58 total on in AM [Moles/vo source lume] in data Serum or Plasma Creatinin 0.55 - mg/dL Normal No Jan 21 e 1.02 informati 2016 8:58 [Mass/vol on in AM ume] in source Serum or data Plasma Estimated 59- ML/MIN No REFERENCE Jan 21 informati RANGE: 2016 8:58 glomerula on in >60 AM r source ML/MIN/1. filtratio data 73 SQUARE n rate METERSIf (GF this patient is -A merican, then multiply theresult by 1.210. Globulin 1.3 - 3.2 gm/dL High No Jan 21 [Mass/vol informati 2016 8:58 ume] in on in AM Serum source data Glucose 74 - 106 mg/dL Normal No Jan 21 [Mass/vol informati 2016 8:58 ume] in on in AM Serum or source Plasma data Potassium 3.5 - 5.1 mmoL/L Normal No Jan 21 informati 2016 8:58 [Moles/vo on in AM lume] in source Serum or data Plasma Sodium 136 - 145 mmoL/L Normal No Jan 21 [Moles/vo informati 2016 8:58 lume] in on in AM Serum or source Plasma data Aspartate 15 - 37 U/L Low No Jan 21 informati 2016 8:58 aminotran on in AM sferase source [Enzymati data c activity/ volume] in Serum or Plasma Alanine 12 - 78 U/L Normal No Jan 21 aminotran informati 2016 8:58 sferase on in AM [Enzymati source c data activity/ volume] in Serum or Plasma Protein 6.4 - 8.2 gm/dL Normal No Jan 21 [Mass/vol informati 2016 8:58 ume] in on in AM Serum or source Plasma data Choriogonadotropin [Units/volume] in Serum or Plasma Observa Value Referen Units Interpr Notes Date tion ce etation Range Choriogon NEG No No No Jan 21 adotropin informati informati informati 2016 8:58 on in on in on in AM [Units/vo source source source lume] in data data data Serum or Plasma CBC W Auto Differential panel in Blood Observa Value Referen Units Interpr Notes Date tion ce etation Range Basophils 0 - 0.2 K/MM3 Normal No Jan 21 informati 2016 8:58 [#/volume on in AM ] in source Blood by data Automated count Basophils 0.1 - 2.0 % Normal No Jan 21 /100 informati 2016 8:58 leukocyte on in AM s in source Blood by data Automated count Eosinophi 0.0 - 0.4 K/mm3 Normal No Jan 21 ls informati 2016 8:58 [#/volume on in AM ] in source Blood by data Automated count Eosinophi 0.1 - % Normal No Jan 21 ls/100 12.0 informati 2016 8:58 leukocyte on in AM s in source Blood by data Automated count Granulocy 1.8 - 7.8 K/mm3 Normal No Jan 21 sara informati 2016 8:58 [#/volume on in AM ] in source Blood by data Automated count Granulocy 37.0 - % Normal No Jan 21 sara/100 80.0 informati 2016 8:58 leukocyte on in AM s in source Blood by data Automated count Hematocri 37.0 - % Low No Jan 21 t [Volume 47.0 informati 2016 8:58 on in AM Fraction] source of Blood data Hemoglobi 12.2 - g/dL Low No Jan 21 n 16.2 informati 2016 8:58 [Mass/vol on in AM ume] in source Blood data Lymphocyt 0.7 - 4.5 K/mm3 Normal No Jan 21 es informati 2016 8:58 [#/volume on in AM ] in source Unspecifi data ed specimen by Automated count Lymphocyt 10 - 50.0 % Normal No Jan 21 es informati 2016 8:58 [#/volume on in AM ] in source Unspecifi data ed specimen by Automated count Erythrocy 27 - 31.2 pg Low No Jan 21 te mean informati 2016 8:58 corpuscul on in AM ar source hemoglobi data n [Entitic mass] Erythrocy 31.8 - g/dl Low No Jan 21 te mean 35.4 informati 2016 8:58 corpuscul on in AM ar source hemoglobi data n concentra tion [Mass/vol ume] by Automated count Erythrocy 82.2 - fl Normal No Jan 21 te mean 97.8 informati 2016 8:58 corpuscul on in AM ar volume source [Entitic data volume] by Automated count Monocytes 0.1 - 1.0 K/mm3 Normal No Jan 21 informati 2016 8:58 [#/volume on in AM ] in source Blood by data Automated count Monocytes 1.7 - 9.3 % Normal No Jan 21 /100 informati 2016 8:58 leukocyte on in AM s in source Blood by data Automated count Platelet 7.4 - fl Normal No Jan 21 mean 10.4 informati 2016 8:58 volume on in AM [Entitic source volume] data in Blood by Automated count Platelets 142 - 424 K/mm3 Normal No Jan 21 informati 2016 8:58 [#/volume on in AM ] in source Blood data Erythrocy 4.2 - 5.4 M/mm3 Low No Jan 21 sara informati 2016 8:58 [#/volume on in AM ] in source Amniotic data fluid Erythrocy 11.5 - % Normal Jan 21 te 17.5 informati 2016 8:58 distribut on in AM ion width source [Entitic data volume] by Automated count Leukocyte 4.8 - K/MM3 Normal No Jan 21 s 10.8 informati 2016 8:58 [#/volume on in AM ] in source Blood data Choriogonadotropin.beta subunit ( test) [Presence] in Serum or Plasma Observa Value Referen Units Interpr Notes Date tion ce etation Range Choriog 0 No mIU/ML No NON-PRE Dec 1 onadotr informa informa GNANT 2017 opin.be tion in tion in FEMALES 2:29 PM ta source source subunit data data REFEREN CE (pregna RANGE = ncy 0 - 6 test) mIU/mLG [Presen estatio ce] in nal Age Serum or HCG Plasma RANGE0. 2 WEEKS 5 - 501-2 WEEKS 50 - 5002-3 WEEKS 100 - 5,0003- 4 WEEKS 500 - 10,0004 -5 WEEKS 1,000 - 50,0005 -6 WEEKS 10,000 - 100,000 6-8 WEEKS 15,000 - 200,000 2-3 MONTHS 10,000 - 100,000 CHLAMYDIA AND GONORRHEA TESTING Observa Value Referen Units Interpr Notes Date tion ce etation Range COLLECT J. No No No No Oct 14 OR ALEJA informa informa informa informa 2014 , RN tion in tion in tion in tion in 8:25 AM source source source source data data data data ETHNICI WHITE, No No No No May 15 TY NON-HIS informa informa informa informa 2014 PANIC tion in tion in tion in tion in 8:25 AM source source source source data data data data KIT No No No No May 15 EXPIRAT 015 informa informa informa informa 2014 ION tion in tion in tion in tion in 8:25 AM DATE source source source source data data data data SYMPTOM NO No No No No May 15 S informa informa informa informa 2014 tion in tion in tion in tion in 8:25 AM source source source source data data data data REASON FAMILY No No No No May 15 FOR LO informa informa informa informa 2014 REQUEST G tion in tion in tion in tion in 8:25 AM PREGNAN source source source source CY TEST data data data data VISIT SPECIME URINE No No No No May 15 N informa informa informa informa 2014 SOURCE tion in tion in tion in tion in 8:25 AM source source source source data data data data PREGNAN YES No No No No May 15 T informa informa informa informa 2014 tion in tion in tion in tion in 8:25 AM source source source source data data data data CHART N/A No No No No May 15 NUMBER informa informa informa informa 2014 tion in tion in tion in tion in 8:25 AM source source source source data data data data Chlamyd NEGATIV No No No NEGATIV May 15 ia E informa informa informa E 2014 trachom tion in tion in tion in RESULT= 8:25 AM atis source source source WITHIN rRNA data data data NORMAL [Presen ce] in LIMITSP Unspeci OSITIVE fied specime RESULT= n by Probe & ABNORMA target LEQUIVO SUSY amplifi RESULT= cation method INDETER MINATEU NSATISF ACTORY RESULT= INVALID Neisser NEGATIV No No No NEGATIV May 15 ia E informa informa informa E 2014 gonorrh tion in tion in tion in RESULT= 8:25 AM oeae source source source WITHIN rRNA data data data NORMAL [Presen ce] in LIMITSP Unspeci OSITIVE fied specime RESULT= n by Probe & ABNORMA target LEQUIVO SUSY amplifi RESULT= cation method INDETER MINATEU NSATISF ACTORY RESULT= INVALID THE APTIMA COMBO 2 ASSAY IS NOT INTENDE D FOR THE EVALUAT ION OF SUSPECT EDSEXUA L ABUSE OR FOR OTHER MEDICO- LEGAL INDICAT IONS. FOR THOSE PATIENT S FORWHOM A FALSE POSITIV E RESULT MAY HAVE ADVERSE PSYCHO- SOCIAL IMPACT, [facility] MMENDS RETESTI NG.\.br \This report contain s patient informa tion that must be protect ed in accorda nce with the Health Insuran ce Portabi lity and Account ability Act. CHLAMYDIA AND GONORRHEA TESTING Observa Value Referen Units Interpr Notes Date tion ce etation Range COLLECT J. No No No No May 15 OR ALEJA informneil informa informa informa 2013 , RN tion in tion in tion in tion in 8:25 AM source source source source data data data data ETHNICI WHITE, No No No No May 15 TY NON-HIS informa informa informa informa 2013 PANIC tion in tion in tion in tion in 8:25 AM source source source source data data data data KIT No No No No May 15 EXPIRAT 015 informa informa informa informa 2014 ION tion in tion in tion in tion in 8:25 AM DATE source source source source data data data data SYMPTOM NO No No No No May 15 S informa informa informa informa 2014 tion in tion in tion in tion in 8:25 AM source source source source data data data data REASON FAMILY No No No No May 15 FOR PLANNIN informa informa informa informa 2014 REQUEST G tion in tion in tion in tion in 8:25 AM PREGNAN source source source source CY TEST data data data data VISIT SPECIME URINE No No No No May 15 N informa informa informa informa 2014 SOURCE tion in tion in tion in tion in 8:25 AM source source source source data data data data PREGNAN YES No No No No May 15 T informa informa informa informa 2014 tion in tion in tion in tion in 8:25 AM source source source source data data data data CHART N/A No No No No May 15 NUMBER informa informa informa informa 2014 tion in tion in tion in tion in 8:25 AM source source source source data data data data Chlamyd Pending No No No No May 15 ia informa informa informa informa 2014 trachom tion in tion in tion in tion in 8:25 AM atis source source source source rRNA data data data data [Presen ce] in Unspeci fied specime n by Probe & target amplifi cation method Neisser Pending No No No \.br\May 15 ia informa informa informa is 2014 gonorrh tion in tion in tion in report 8:25 AM oeae source source source contain rRNA data data data s [Presen patient ce] in Unspeci informa fied tion specime that n by must be Probe & target protect ed in amplifi accorda cation nce method with the Health Insuran ed Blood lity and Account ability Act.
--- OUTSIDE RECORDS SUMMARY | 2017-05-21 16:28 | External Medical Summary Rpt ---
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
--- NOTE | 2017-05-21 17:11 | Urgent Treatment Center Report ---
History of Present Issue Date/Time Seen by Provider 05/21/17 1650 Visit Reason Pt arrived:Walked Presenting Problem:PT WAS PLAYING WITH CHILD AT HOME AND HIT LEFT SIDE OF RIB CAGE ON THE COUCH ARM HEARING A POP. Location if Accident:Home Onset of symptoms date/time:05/21/17 or onset unknown for: Have you (or family members/close friends) recently traveled outside the [place]? N If Yes, where/when: Have you had exposure to infectious disease within the past month? TB? Other? Specify: c/o left flank pain since around noon today. Reports she was playing with son when she fell into the arm of the sofa. "both her and my heard something pop". Immediate pain. Since then, pain has been getting worse. Now worse with movement and deep breathing. Denies SOA "just hurts to breath but I can breath". Pain improved w/ splinting area with pillow. Hasn't taken or tried anything for symptoms. Source patient Exam Limitations no limitations ALLERGIES Coded Allergies: bismuth subsalicylate (From KAOPECTATE (BISMUTH SUBSALICY)) (Mild, 01/22/17) PEANUTS (FOOD) (. 01/22/17) Home Medications Reported Medications No Home Medications (NO HOME MEDICATIONS) 1 X * ONCE History Medical History General CAD? No Angina: No [place]: No Hypertension? No Hyperlipidemia? No CHF? No DVT? No PE? No COPD? No Asthma? No Anemia? No GERD? No Gastric ulcers? No GI Bleed? No Hernia? No Thyroid Problems? No Hypothyroidism? No CVA? No Seizures? No Diabetes? No Renal Insuffiency? No UTI? No Stones? No BPH? No GB Disease: No Nephritic Syndrome? No Asplenia? No Hepatitis? No Sickle Cell Disease? No Arthritis? No Migraines? No Cataracts? No Glaucoma? No MRSA? No HIV? No TB? No Anxiety? No Depression? No Cancer? No Site: N More? No Immunization HX Ped.Immunizations UTD No DT/Tetanus NOT SURE Flu REFUSED Pneumonia REFUSED Surgical Hx Previous Surgery?Y EAR TUBES 2000 Social History Smoking Hx Smoker: Never Smoker Tobacco: No Type N/A Alcohol Alcohol: No Review of Systems All Other Systems Reviewed and Negative Constitutional denies fever, denies weakness Respiratory see HPI, denies cough, denies stridor Cardiovascular see HPI, denies edema, denies palpitations Gastrointestinal denies abdominal pain Musculoskeletal see HPI, denies neck pain Skin denies change in color, denies lesions, denies lumps Physical Exam Vital Signs Vital Signs Date Time Temp Pulse Resp B/P Pulse O2 O2 Flow FiO2 Ox Delivery Rate 05/21 1734 98.6 65 18 102/70 100 05/21 1646 98.6 65 18 102/70 100 General Appearance mild distress (guarding left flank) Neck non-tender, supple, full range of motion Respiratory Status Yes: trachea midline, chest symmetrical, tender on palpation (see comments), pain on inspiration. No: respiratory distress, use of accessory muscles, pain on expiration, productive cough, non productive cough. Lung Sounds anterior: lungs clear. posterior: lungs clear. bilateral: lungs clear. Cardiovascular regular rate/rhythm, no peripheral edema, no murmur Extremities limited ROM left shoulder because increase rib pain, no tenderness left shoulder or UE Strength 5 Upper Ext (L), 5 Upper Ext (R) Neurologic alert, no motor/sensory deficits Skin intact, normal color, warm/dry Comments moderate tenderness left anterior chest rib 2-6 and left flank 4-6 Medical Decision Making LABS/Meds/Orders Pt receiving controlled substance in ED? No Results/Orders Orders Procedure Date/time Status RIBS-BILATERAL 05/21 1645 Active XRAY/CT/US XRAY/CT/US XRAY rib XR interpretation by reviewed by me, discussed w/radiologist (Dr. Bryant) Xray Results no fracture seen Departure Departure Time of Disposition 172 Disposition DC Home or Self Care(routine) Clinical Impression Primary Impression: Contusion of rib on left side Qualifiers: Encounter type: initial encounter Qualified Code: S20.212A - Contusion of left front wall of thorax, initial encounter Condition STABLE Referrals SHORT,DANISHA (Family) Return immediately for new or worsening symptoms this weekend. If no noticeable improvement over the next 72 hours, be sure to follow up with primary are. 911 for difficulty breathing. Patient Instructions DI for Rib Contusion Additional Instructions take it easy Ice 15-20 minutes 3-4x/day x48 hours but if doesn't help, try heating pad instead Avoid heavy lifting NO wrapping chest as discussed. Splinting w/ arm or pillow like you have been doing is ok Ibuprofen 600-800mg every 6 hours as needed. Offered naproxen but you rather take ibuprofen and this is ok. If you need something more, tylenol 650-1000mg every 4-6 hours as needed with no more then 4000mg in 24 hours. Discharge Counseling Counseled pt/family regarding diagnosis, test results, medications/RX, home care, follow up needs at 1906
[2017-05-21 17:34] VITALS: BP 102/70
--- NOTE | 2017-05-21 17:35 | RADIOLOGY REPORT PS360 ---
RIBS-BILATERAL HISTORY: Chest pain following injury, left posterior chest and flank pain HIT SIDE ON THE COUCH ARM ORDERING PHYSICIAN: CORIE PATRICIO APRN PATIENT AGE: 26 years COMPARISON: None FINDINGS: A frontal view of the chest shows no acute finding. There is an azygos fissure is normal variant. Multiple views of the left and right ribs ribs were obtained. No fracture or dislocation. No lytic or blastic change. There is mild lower thoracic scoliosis convex right IMPRESSION: Negative RIBS. If pain persists, consider follow-up exam in 7-[address] with 3-D reformats.
== END 2017-05-21 17:35 | disposition home or self-care (01) ==
LOC: UTC 16:09 → ER 16:12 → UTC 16:12
DX: S20.212A Contusion of left front wall of thorax, initial encounter (principal); W18.09XA Striking against other object with subsequent fall, initial encounter; Y93.89 Activity, other specified; Y92.008 Other place in unspecified non-institutional (private) residence as the place of occurrence of the external cause